=== PATIENT | male | born 1935 | race Caucasian/White ===

== ENCOUNTER 2019-03-15 20:20 | Inpatient (IN) | payer MEDICARE, OTHER, SELFPAY ==
[2019-03-15] VITALS (7 sets, daily range): BP systolic 139–174; BP diastolic 64–89; PULSE 71–87; RESP 18–33; TEMP 36.8–37; O2SAT 79–96; BMI 32.7
--- NOTE | 2019-03-15 20:38 | RAD_ITS ---
STUDY: X-RAY CHEST REASON FOR EXAM: Male, 84 years old. Short of breath. Heart disease and congestive failure. TECHNIQUE: Single AP portable view of the chest. COMPARISON: None. FINDINGS: Normal lung volumes with mild to moderate diffuse bilateral pulmonary density. Findings may represent congestion pulmonary edema, fibrosis, and/or patchy atelectasis/infiltrate infiltrates. There is mild cardiac enlargement. Normal mediastinum and miri. Normal visualized pulmonary arteries. There is atherosclerotic calcification of the aortic arch with tortuosity. There are diffuse degenerative changes of the visualized thoracic spine. Normal visualized ribs, clavicles, and shoulders. There is no demonstrated abnormality of the visualized soft tissue structures of the upper abdomen. RAD/Chest 1 View (Portable) IMPRESSION: Mild to moderate bilateral diffuse pulmonary density, with considerations as above. Electronically Signed: Dm Lopez MD at 21:17 EDT , Service support ,
--- NOTE | 2019-03-15 20:38 | EKG12_ITS ---
Test Reason : SOB Blood Pressure : / mmHG Vent. Rate : 081 BPM Atrial Rate : 088 BPM P-R Int : 000 ms QRS Dur : 132 ms QT Int : 372 ms P-R-T Axes : 000 -36 113 degrees QTc Int : 432 ms Atrial fibrillation Left axis deviation Non-specific intra-ventricular conduction block Cannot rule out Septal infarct , age undetermined T wave abnormality, consider lateral ischemia Abnormal ECG Confirmed by SERENA MALCOLM, CHRIS ([id number]), publications editor JOANNE BADILLO ([id number]) on 03/18/2019 10:21:34 AM Referred By: Zachariah Stanton Confirmed By:CHRIS LYONS MD
[2019-03-15] MEDS: Albuterol 2.5 MG/3 ML VIAL.NEB. INHALATION ×2 (20:40→20:55)
[2019-03-15] MEDS: Ipratropium/Albuterol Sulfate 3 ML AMPUL.NEB INHALATION (20:40)
[2019-03-15] MEDS: MethylPREDNISolone 125 MG/2 ML Vial IV (20:51)
[2019-03-15 20:53] LABS: Absolute Lymphocyte Count 1.28 X10^3/uL (0.83-4.51); Absolute Neutrophil Count 8.6 X10^3/uL (2.0-7.7); Basophil# 0.04 X10^3/uL; Basophil% 0.4 % (0-1); Eosinophil# 0.04 X10^3/uL; Eosinophils% 0.4 % (0-5); Hematocrit 42.9 % (40-54); Hemoglobin 14.1 g/dL (13.0-16.5); Lymphocyte # 1.28 X10^3/ul (4.0); Lymphocyte % 11.5 % (19-41); Mean Corp Hgb Conc 32.9 g/dL (32-36); Mean Corpuscular Hgb 31.1 pg (27.0-32.0); Mean Corpuscular Volume 94.7 fL (80-94); Mean Platelet Vol. 11.5 fl (6.2-12.0); Monocyte# 1.17 X10^3/uL; Monocyte% 10.5 % (0-10); NRBC Flagged by Analyzer 0 % (0-5); Neutrophil % 76.8 % (47-70); Platelet Count 208 K/mm3 (150-450); RBC Distribution Width CV 13.2 % (11.6-14.6); RBC Distribution Width SD 45.8 fl (35.1-43.9); Red Blood Count 4.53 M/mm3 (4.6-6.2); White Blood Count 11.2 K/mm3 (4.4-11.0)
[2019-03-15 21:14] LABS: Anion Gap 6 (5-15); BUN 29 mg/dL (7-18); BUN/Creat Ratio 22.7 RATIO (10-20); Calcium,Total 9.1 mg/dL (8.5-10.1); Chloride 103 mmol/L (98-107); Creatinine, Serum 1.28 mg/dL (0.70-1.30); EST Glomerular Filtration Rate 57 mL/min (>60); Est Glom Filt Rate - Afr Amer 69 mL/min (>60); Glucose 280 mg/dL (74-106); Potassium 4.3 mmol/L (3.5-5.1); Sodium Level 137 mmol/L (136-145)
[2019-03-15 21:22] LABS: BNP,B-Type NATRIURETIC PEPTIDE 837.4 pg/mL (0-100)
[2019-03-15 21:26] LABS: Allen Test POS; Base Excess 1 mmol/L (-2 to +2); Bicarbonate 25.6 mmol/L (22-26); Blood Gas Specimen Type ART; O2 Delivery Device Nasal Can; PO2 68 mmHG (75-100); SITE L Brachial; SO2 93 % (95-99); Time Given 2118; Total Carbon Dioxide 27 mmol/L; pCO2 42.8 mmHg (35-45); pH 7.39 (7.35-7.45)
[2019-03-15 22:43] LABS: International Normalized Ratio 2.7; Prothrombin Time (Protime)PT. 28.8 SECONDS (11.7-14.9)
[2019-03-15] MEDS: Furosemide 40 MG/4 ML Vial IV (23:17)
--- NOTE | 2019-03-15 23:17 | ED.VISSUMM ---
- ER Visit Summary Date of Service: 03/15/19 Chief Complaint: Shortness of breath History of Present Illness: The patient is a 84 M who is visiting from [place]. He is helping clear out his wjxran-vd-hbd's house who last year. He has been very active, working in the house over the last 6 days. He has not been using chemicals. He reports increasing shortness of breath today. His oxygen was 75% for EMS on room air. He denies any history of lung disease. He does not use oxygen at home. He is a non-smoker. He does have a history of A. fib and takes Coumadin. He also has a history of coronary disease with 11 stents. He is denying any chest pain or nausea. Denies any sweats. Denies fever or sputum. Physical Examination: Afebrile. 89% on 6 L. Blood pressure 174/89. Patient is alert and oriented. No acute distress, joking. HEENT exam unremarkable. Heart is irregular. Lungs are diminished and wheezing in all navas. Extremities nontender with no edema. Skin appears normal without diaphoresis or pallor. Test Results: EKG showed atrial fibrillation at a rate of 81. White count 11.2. Glucose 280, BUN 29, INR 2.7. Troponin normal. BNP 837. ABG showed an oxygen of 68. Chest x-ray showed diffuse pulmonary disease concerning for edema versus fibrosis versus infiltrates. Emergency Department Course and Treatment: EKG showed A. fib. Patient was placed on a monitor and oxygen. He was wheezing and treated with nebulizers and Solu-Medrol while awaiting results. On reevaluation, he some improvement in his breathing. His oxygen is in the upper 90s on 6 L. He has no history of COPD. I do not suspect pneumonia. He does not have a high white count, fever, or sputum. PE is less likely based on his INR of 2.7. I am concerned for pulmonary edema. His BNP was 837. Troponin was unremarkable. Patient was treated with Lasix. I spoke with his family at bedside. They are planning to travel back to [place] on Saturday, but are agreeable to admission. I spoke with Dr. Stanton who will admit. Treatment Plan: As above Disposition: Admission Impression: 1. Hypoxia 2. Pulmonary edema This note was generated with [employer] software. It may contain incorrect words, spelling, and punctuation that were not noted in review of the chart prior to signing ED Disposition - Plan for ED Patient: Referrals: Town Doctor,Out of [Primary Care Provider] -
--- NOTE | 2019-03-15 23:27 | PCM.HP.STD ---
Problem List (1) Coronary artery disease Status: Chronic (2) Congestive heart failure Status: Chronic (3) Peripheral arterial disease Status: Chronic (4) Chronic atrial fibrillation Status: Chronic (5) Diabetes mellitus type 2 Status: Chronic (6) Hypertension Status: Chronic (7) Dyslipidemia Status: Chronic (8) Acute hypoxic respiratory failure Status: Acute History of Present Illness Date of Admission: 03/15/19 Chief Complaint: Shortness of breath for last 2 days The patient is a 84 year old M with history of coronary artery disease status post 11 stents, peripheral arterial disease with left femoral stent and renal stent came to ER with shortness of breath for last 2 days. Patient felt mild short of breath yesterday but got very short of breath after he was cleaning his bwjdxo-ff-fyj's house. 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 Patient also has cough for last 5 to 6 months and felt mild chest congestion with mucus. He also felt fever, chills and sweating at home. Patient denies history of COPD but has history of smoking 20 packs, about 2 packs/day for 10 years. He quit in his 20s. In ED, is found to have mild leukocytosis with left shift neutrophils 76%. ABG showed 7.39/PCO2 42.8, PO2 68 on 6 L of oxygen through nasal cannula. Patient felt better after breathing treatment and Lasix and Solu-Medrol given in ED. Chest x-ray shows nonspecific mild to moderate bilateral diffuse pulmonary density. EKG shows atrial fibrillation with LAD, QRS 132 ms, history of nonspecific intraventricular delay. Past Medical History Past Medical History (Chronic Problems): Chronic Problems Coronary artery disease (Chronic) Congestive heart failure (Chronic) Peripheral arterial disease (Chronic) Chronic atrial fibrillation (Chronic) Diabetes mellitus type 2 (Chronic) Hypertension (Chronic) Dyslipidemia (Chronic) Allergies No Known Allergies Allergy (Verified 03/15/19 20:21) Home Medications: Ambulatory Orders Medication Instructions Recorded Clopidogrel Bisulfate [Plavix] 75 mg PO DAILY 03/15/19 Diltiazem CD [Cardizem CD] 240 mg PO DAILY 03/15/19 Duloxetine HCl 30 mg PO DAILY 03/15/19 Gabapentin 800 mg PO 4X/DAY 03/15/19 Glimepiride [Amaryl] 4 mg PO DAILY 03/15/19 Lisinopril/Hydrochlorothiazide 1 ea PO DAILY 03/15/19 [Lisinopril-Hctz 20-25 mg Tab] Lovastatin 20 mg PO DAILY 03/15/19 Metformin HCl 500 mg PO BID 03/15/19 Tamsulosin HCl [Flomax] 0.4 mg PO DAILY 03/15/19 Warfarin Sodium [Jantoven] 5 mg PO MOFR 03/15/19 Warfarin [Coumadin ([facility])] 2.5 mg PO SUTUWETHSA 03/15/19 Smoking Status: Former smoker - *Family History Maternal History Items: Stroke - of a stroke in her 50s Review of Systems Constitutional: Reports: Chills, Fever, Malaise HEENT: Denies: Head Aches, Sinus Congestion, Sinus Drainage Cardiovascular: Reports: Edema. Denies: Chest Pain - Denies chest pain, Palpitations Respiratory: Reports: Cough, Shortness of Breath, Shortness of breath at rest, Shortness of breath upon exertion, Wheezing. Denies: Sputum production Gastrointestinal: Denies: Abdominal Pain, Nausea, Vomiting Genitourinary: Denies: Dysuria, Frequency, Incontinence, Retention Musculoskeletal: Denies: Joint Pain, Joint Tenderness Skin: Denies: Rash, Wounds Neurological: Denies: Focal weakness, Numbness, Tingling Psychiatric: Denies: Anxiety, Depression, Homicidal Ideations, Suicidal Ideations Hematologic/ Lymphatic: Denies: Easy Bruising, Easy Bleeding VTE Information - Inpt Only VTE Present on Admission: No VTE Mechan Device Prophylaxis: None VTE Pharm Prophylaxis ordered?: No Reason prophylaxis not ordered:: Procedure Not Indicated - Patient is on Coumadin. INR therapeutic. Patient Problems: Active and Suspected Problems Acute hypoxic respiratory failure (Acute) - Physical Exam General: Alert, Oriented x3, Cooperative HEENT: Atraumatic, PERRLA, EOMI, Normocephalic Neck: Supple, No JVD, Negative Carotid Bruits Lungs: No rhonchi, No wheeze, No rales, Diminished - Air entry is diminished., Rhonchi - Okay is no rhonchi and wheezing present Cardiovascular: Regular rate, Regular Rhythm, Normal S1, Normal S2, No murmurs Abdomen: Bowel Sounds Present, Soft, Non Tender, Non-Distended Extremities: No edema, Capillary Refill Less than 3 Seconds Skin: No rashes, No breakdown Musculoskeletal: No Tenderness to Palpation of Joints or Extremities, Arthritic Changes Neurological: Cranial nerves II-XII grossly intact Psych/Mental Status: Normal Affect, Appropriate Vital Signs Temp Pulse Resp BP Pulse Ox 98.6 F 79 20 H 149/64 H 96 03/15/19 22:02 03/15/19 22:02 03/15/19 22:02 03/15/19 22:02 03/15/19 22:02 Oxygen Flow Rate (L/min) 6 Oxygen Delivery Method Nasal Cannula Weight: 196 lb 10.437 oz Body Mass Index (BMI) 32.7 Laboratory Tests Past 24 Hrs 03/15/19 03/15/19 03/15/19 20:05 20:25 20:25 WBC 11.2 H RBC 4.53 L Hgb 14.1 Hct 42.9 MCV 94.7 H MCH 31.1 MCHC 32.9 RDW Std Deviation 45.8 H RDW Coeff of Petrona 13.2 Plt Count 208 MPV 11.5 Immature Gran % (Auto) 0.400 Neut % (Auto) 76.8 H Lymph % (Auto) 11.5 L Harney % (Auto) 10.5 H Eos % (Auto) 0.4 Baso % (Auto) 0.4 Absolute Neuts (auto) 8.6 H Absolute Lymphs (auto) 1.28 Nucleated RBC % 0 PT 28.8 H INR 2.7 Specimen Type Sample Site pH Bicarbonate Actual POC Total CO2 Base Excess O2 Saturation ABG pCO2 ABG pO2 Johnnie Test O2 Delivery Device Liter Flow Blood Gas Notified Whom Blood Gas Notified Time Sodium 137 Potassium 4.3 Chloride 103 Carbon Dioxide 28.0 Anion Gap 6 BUN 29 H Creatinine 1.28 Estim Creat Clear Calc 38.70 Est GFR (MDRD) Af Amer 69 Est GFR (MDRD) Non-Af 57 L BUN/Creatinine Ratio 22.7 H Glucose 280 H Calcium 9.1 Troponin I < 0.015 B-Natriuretic Peptide 03/15/19 03/15/19 20:25 21:23 WBC RBC Hgb Hct MCV MCH MCHC RDW Std Deviation RDW Coeff of Petrona Plt Count MPV Immature Gran % (Auto) Neut % (Auto) Lymph % (Auto) Harney % (Auto) Eos % (Auto) Baso % (Auto) Absolute Neuts (auto) Absolute Lymphs (auto) Nucleated RBC % PT INR Specimen Type ART Sample Site L Brachial pH 7.39 Bicarbonate Actual 25.6 POC Total CO2 27 Base Excess 1 O2 Saturation 93 L ABG pCO2 42.8 ABG pO2 68 L Johnnie Test POS O2 Delivery Device Nasal Can Liter Flow 6.0 Blood Gas Notified Whom ED Blood Gas Notified Time 2117 Sodium Potassium Chloride Carbon Dioxide Anion Gap BUN Creatinine Estim Creat Clear Calc Est GFR (MDRD) Af Amer Est GFR (MDRD) Non-Af BUN/Creatinine Ratio Glucose Calcium Troponin I B-Natriuretic Peptide 837.4 H Assessment/Plan All Active Problems Acute hypoxic respiratory failure (Acute) The patient is a 84 year old M with history of coronary artery disease status post 11 stents, peripheral arterial disease with left femoral stent and renal stent came to ER with shortness of breath for last 2 days. Patient felt mild short of breath yesterday but got very short of breath after he was cleaning his xhwnhl-kp-jkb's house. 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 Chest x-ray shows nonspecific mild to moderate bilateral diffuse pulmonary density. EKG shows atrial fibrillation with LAD, QRS 132 ms, history of nonspecific intraventricular delay. 1. Acute hypoxic respiratory failure, possible COPD exacerbation: Patient is being admitted to PCU. Does not have any previous cardiac work-up here. Patient is being admitted to PCU on oxygen support. Will treat underlying disorder. 2. Possible COPD exacerbation with suspicion of pneumonia: Chronic cough, wheezing and mucus raises suspicion of possible undiagnosed COPD. Bronchodilator every 4 hourly, albuterol as needed, IV Solu-Medrol, incentive spirometry and chest physiotherapy. Patient clinically has subjective fever, chills, cough, mild leukocytosis with hypoxia raises suspicion of pneumonia although Chest x-rays finding of bilateral pulmonary hilar density not classical of pneumonia. Pneumonia work-up ordered including urinary antigens, respiratory panel, sputum culture. If patient spikes fever, will need blood cultures x2. No fever or tachycardia noted. Empirically started on IV ceftriaxone and Zithromax and if pneumonia work-up is negative, can discontinued. Repeat chest x-ray PA and lateral tomorrow a.m. 3. CHF, type and etiology unclear: Patient does not have increased leg swelling but BNP is elevated. Clinically does not seem to be in CHF exacerbation. 2D echo ordered for tomorrow a.m. Continue Lasix 40 mg daily. Serial troponin enzymes. Fasting profile and TSH ordered for tomorrow a.m. 5. Coronary artery status post stent, peripheral artery disease, renal artery status post stent and chronic atrial fibrillation and hypertension: Home medications continued. Patient is on lisinopril?HCTZ which is being held as patient is started. Patient not on diuretic at home 6. DVT prophylaxis: Patient is on Coumadin. INR 2.7. Continue Coumadin Advanced directive/MOLST/living will: Patient has living will at home as per his sitting near the bedside. Discussed with the patient and his . It reversible/terminal stage, he does not want to be intubated/CPR. Patient does not want artificial life support including intubation, tube feed, ventilator and/chest compression. Patient is DNR CC Arrest. Total time spent in [id number]-[id number] encounter in discussion of advanced directive 18 minutes. Laboratory Results 03/15/19 20:05: PT 28.8 H, INR 2.7 03/15/19 20:25: WBC 11.2 H, RBC 4.53 L, Hgb 14.1, Hct 42.9, MCV 94.7 H, MCH 31.1, MCHC 32.9, RDW Std Deviation 45.8 H, RDW Coeff of Petrona 13.2, Plt Count 208, MPV 11.5, Immature Gran % (Auto) 0.400, Neut % (Auto) 76.8 H, Lymph % (Auto) 11.5 L, Harney % (Auto) 10.5 H, Eos % (Auto) 0.4, Baso % (Auto) 0.4, Absolute Neuts (auto) 8.6 H, Absolute Lymphs (auto) 1.28, Nucleated RBC % 0 03/15/19 20:25: Sodium 137, Potassium 4.3, Chloride 103, Carbon Dioxide 28.0, Anion Gap 6, BUN 29 H, Creatinine 1.28, Estim Creat Clear Calc 38.70, Est GFR (MDRD) Af Amer 69, Est GFR (MDRD) Non-Af 57 L, BUN/Creatinine Ratio 22.7 H, Glucose 280 H, Calcium 9.1, Troponin I < 0.015 03/15/19 20:25: B-Natriuretic Peptide 837.4 H 03/15/19 21:23: Specimen Type ART, Sample Site L Brachial, pH 7.39, Bicarbonate Actual 25.6, POC Total CO2 27, Base Excess 1, O2 Saturation 93 L, ABG pCO2 42.8, ABG pO2 68 L, Johnnie Test POS, O2 Delivery Device Nasal Can, Liter Flow 6.0, Blood Gas Notified Whom ED MD, Blood Gas Notified Time 2117 Clinical Impression(s) from Imaging Studies Chest X-Ray 03/15/19 20:38 IMPRESSION: Mild to moderate bilateral diffuse pulmonary density, with considerations as above. Code Visit Inpatient E&M: 75238 Init Hosp L3 Procedures: 28886 Advncd Care Plan 30 Min
[2019-03-16] VITALS (11 sets, daily range): BP systolic 142–156; BP diastolic 68–70; PULSE 71–89; RESP 16–20; TEMP 36.4–36.6; O2SAT 92–99; BMI 31.6; BMI 31.7
[2019-03-16] MEDS: Ceftriaxone 1 GM/50 ML BAG IV (03:25)
--- NOTE | 2019-03-16 05:55 | ECHOD_ITS ---
Version 2 Reason For Study: CHF Left Ventricle Moderately dilated left ventricle. The estimated ejection fraction is 30 %. Unable to assess diastolic dysfunction. There is moderate to severe global hypokinesis of the left ventricle. Right Ventricle Mildly dilated right ventricle. Normal systolic function. Atria The left atrium is moderately enlarged. The right atrium is mildly enlarged. Normal atrial septum. Mitral Valve Mild diffuse mitral valve thickening. Trivial mitral valve insufficiency. Tricuspid Valve Normal tricuspid valve. Mild (1+) tricuspid valve insufficiency. Right ventricular systolic pressure estimated to be 59 mmHg. Severe pulmonary hypertension. Aortic Valve Trisinus/trileaflet aortic valve. Mild focal aortic valve thickening. There is no aortic stenosis. Trivial aortic valve insufficiency. Pulmonic Valve Normal pulmonic valve. Great Vessels Normal aortic root. Mild atherosclerosis of the aortic arch. The inferior vena cava is dilated. No collapse of the inferior vena cava. Pericardium/Pleural No pericardial effusion. MMode/2D Measurements & Calculations LVIDd: 5.5 cm IVSd: 1.4 cm LA dimension: 4.6 cm LVIDs: 4.9 cm LVPWd: 1.4 cm FS: 10.9 % LAV(MOD-bp): 69.1 ml LVAd ap4: 35.0 cm2 SV(MOD-sp4): 34.4 ml LAV(MOD-bp) Indexed: 35.7 ml/m2 EDV(MOD-sp4): 120.5 ml LAV(MOD-sp2): 66.1 ml EDV(sp4-el): 130.4 ml LAV(MOD-sp4): 70.0 ml LVAs ap4: 28.2 cm2 ESV(MOD-sp4): 86.0 ml ESV(sp4-el): 88.9 ml EF(MOD-sp4): 28.6 % EF(sp4-el): 31.8 % SV(sp4-el): 41.5 ml LA A4 area: 23.7 cm2 RA A4 area: 20.9 cm2 Time Measurements MV dec time: 0.16 sec Doppler Measurements & Calculations MV E max osman: 110.4 cm/sec MV V2 max: 116.4 cm/sec MV P1/2t max osman: 110.4 cm/sec MV A max osman: 34.7 cm/sec MV max P.4 mmHg MV P1/2t: 76.4 msec MV E/A: 3.2 MV V2 mean: 52.3 cm/sec MV mean P.4 mmHg MV dec slope: 423.1 cm/sec2 MV V2 VTI: 30.0 cm MVA(P1/2t): 2.9 cm2 Ao V2 max: 117.8 cm/sec AI max osman: 338.1 cm/sec LV V1 max: 95.9 cm/sec Ao max P.5 mmHg AI max P.7 mmHg LV V1 max P.7 mmHg Ao V2 mean: 78.9 cm/sec AI dec slope: 256.2 cm/sec2 LV V1 mean P.8 mmHg Ao mean P.9 mmHg AI P1/2t: 386.5 msec LV V1 mean: 63.2 cm/sec Ao V2 VTI: 24.9 cm LV V1 VTI: 21.7 cm MR max osman: 512.5 cm/sec PA V2 max: 67.3 cm/sec TR max osman: 332.8 cm/sec MR max P.1 mmHg TR max P.3 mmHg MR mean osman: 397.6 cm/sec MR mean P.4 mmHg MR VTI: 171.2 cm Interpretation Summary Moderately dilated left ventricle. The estimated ejection fraction is 30 %. Unable to assess diastolic dysfunction. There is moderate to severe global hypokinesis of the left ventricle. Mildly dilated right ventricle. The left atrium is moderately enlarged. The right atrium is mildly enlarged. Trivial mitral valve insufficiency. Mild (1+) tricuspid valve insufficiency. Right ventricular systolic pressure estimated to be 59 mmHg. Severe pulmonary hypertension. Trivial aortic valve insufficiency. No collapse of the inferior vena cava. Pt appears to be in atrial fibrillation. The study was technically difficult. Contrast injection was performed. There is no comparison study available. Ordering Physician: Zachariah Stanton Referring Physician: Zachariah Stanton Performed By: Stepan Laguerre RCS
--- NOTE | 2019-03-16 05:55 | RAD_ITS ---
STUDY: X-RAY CHEST REASON FOR EXAM: Male, 84 years old. Respiratory distress. TECHNIQUE: PA and lateral views of the chest. COMPARISON: Comparison is made with prior study dated March 16, 2019. FINDINGS: EKG electrodes are seen. Vascular congestion. This has improved. Residual blunting of both costophrenic angles more prominent on the right side. There is mild cardiac enlargement. Normal mediastinum and miri. Normal visualized pulmonary arteries. There is atherosclerotic calcification of the aortic arch with tortuosity. There is demineralization of the osseous structures. Normal visualized ribs, clavicles, and shoulders. There is no demonstrated abnormality of the visualized soft tissue structures of the upper abdomen. RAD/Chest PA and Lateral IMPRESSION: Cardiomegaly and a mild degree of vascular congestion with blunting of both costophrenic angles slightly worse on the right side. There has been mild degree of improvement. Electronically Signed: Edgardo Talbert, at 12:35 EDT , Service support ,
[2019-03-16] MEDS: Ipratropium/Albuterol Sulfate 3 ML AMPUL.NEB INHALATION ×2 (06:23→14:21)
[2019-03-16 07:11] LABS: Absolute Lymphocyte Count 0.38 X10^3/uL (0.83-4.51); Absolute Neutrophil Count 5.5 X10^3/uL (2.0-7.7); Basophil# 0.01 X10^3/uL; Basophil% 0.2 % (0-1); Hematocrit 43.3 % (40-54); Hemoglobin 14.2 g/dL (13.0-16.5); Lymphocyte # 0.38 X10^3/ul (4.0); Lymphocyte % 6.3 % (19-41); Mean Corp Hgb Conc 32.8 g/dL (32-36); Mean Corpuscular Hgb 30.9 pg (27.0-32.0); Mean Corpuscular Volume 94.3 fL (80-94); Mean Platelet Vol. 11.7 fl (6.2-12.0); Monocyte# 0.12 X10^3/uL; NRBC Flagged by Analyzer 0 % (0-5); Neutrophil % 91.2 % (47-70); POSITIVE DIFFERENTIAL YES; Platelet Count 165 K/mm3 (150-450); RBC Distribution Width CV 13.1 % (11.6-14.6); RBC Distribution Width SD 45.5 fl (35.1-43.9); Red Blood Count 4.59 M/mm3 (4.6-6.2)
[2019-03-16 07:15] LABS: Differential Indicated SCAN CRITERIA MET
[2019-03-16 07:39] LABS: ALB/GLOB Ratio 0.9 RATIO (0.9-2.4); AST(SGOT) 22 U/L (15-37); Alanine Aminotransfer ALT/SGPT 25 U/L (16-61); Albumin, Serum 3.7 g/dL (3.2-5.0); Alkaline Phosphatase 98 U/L (45-117); Anion Gap 9 (5-15); BUN 32 mg/dL (7-18); BUN/Creat Ratio 22.9 RATIO (10-20); Calcium,Total 8.9 mg/dL (8.5-10.1); Chloride 98 mmol/L (98-107); Cholesterol 137 mg/dL (200); EST Glomerular Filtration Rate 52 mL/min (>60); Est Glom Filt Rate - Afr Amer 62 mL/min (>60); Estimated Creatinine Clearance 35.39 ml/min; Globulin 4.1 g/dL (2.2-4.2); Glucose 457 mg/dL (74-106); High Density Lipoprotein 64 mg/dL; Potassium 4.2 mmol/L (3.5-5.1); Protein, Total 7.8 g/dL (6.4-8.2); Sodium Level 135 mmol/L (136-145); Thyroid Stim Hormone (TSH) 0.54 uIU/mL (0.358-3.74); Triglycerides 62 mg/dL; Very Low Density Lipoprotein 12 mg/dL (5-40)
[2019-03-16 08:11] LABS: Platelet Estimate ADEQUATE (ADEQ); Platelet Morphology LARGE; Red Cell Morphology NORM C+C NORMAL (NORM C&C)
[2019-03-16] MEDS: Insulin Lispro 100 UNIT/ML INSULN.PEN SC ×2 (08:12→11:37)
[2019-03-16] MEDS: Gabapentin 800 MG Tablet PO ×2 (08:14→11:38)
[2019-03-16] MEDS: Glimepiride 4 MG Tablet PO (08:15)
[2019-03-16] MEDS: dilTIAZem CD 240 MG Capsule PO ×2 (09:23→09:24)
[2019-03-16] MEDS: DULoxetine Hcl 30 MG Capsule PO (09:24)
[2019-03-16] MEDS: Famotidine 20 MG Tablet PO (09:24)
[2019-03-16] MEDS: Furosemide 40 MG/4 ML Vial IV (09:24)
[2019-03-16] MEDS: Clopidogrel Bisulfate 75 MG Tablet PO (09:24)
[2019-03-16] MEDS: guaiFENesin 1,200 MG Tablet 1200 MG PO (09:24)
[2019-03-16] MEDS: Polyethylene Glycol 3350 17 GM PACKET PO (09:25)
--- NOTE | 2019-03-16 10:39 | CASEMGMT ---
RN CM Assessment Presentation: COPD Exacerbation, CHF. Hx of 11 stents, L femoral stent and renal stent. Intro role of CM and purpose of RN CM assessment to patient and his in room. Demographics, PCP and Pharmacy verified. Pt and his traveled by car to [place] and plan to return to [place] on discharge. is able to drive, and states they will take time, stay in hotels. PCP: Dr. Lonnie Tavera Preferred Pharmacy: [facility] preferred Insurance: [facility]; [facility] Benefits Prescription Benefit: yes LNOK: Danny Whitt, Living Arrangements: Lives independently with . No care needs identified. Transportation: drives, can drive DME: none. Pt has not used any DME or oxygen. If oxygen would be needed on discharge, recommendation is for [facility]. Pt did not wish to use VA benefits until they returned to [place]. per PT, oxygen on ambulation to 89-90% only. HHC: none Patient DC goals: Home DC PLAN: Home. Clark ESQUIVEL RN ACM
[2019-03-16 11:45] LABS: Bedside Glucose 445 mg/dL (70-110)
--- NOTE | 2019-03-16 14:18 | DCINST_ITS ---
- Discharge Diagnoses Current Active Problems: Current Active and Chronic Problems Coronary artery disease (Chronic) Congestive heart failure (Chronic) Peripheral arterial disease (Chronic) Chronic atrial fibrillation (Chronic) Diabetes mellitus type 2 (Chronic) Hypertension (Chronic) Dyslipidemia (Chronic) Acute hypoxic respiratory failure (Acute) You will use the following diet at home:: Cardiac Discharge Activity: Return to Normal Activity Call your doctor if you observe: Shortness of breath, Dizziness, Fainting spells, Chest pain Additional Instructions: Recommend discussing PFTs (pulmonary function testing) with your PCP when you return home to assess for underlying lung disease. Allergies/Adverse Reactions: Allergies No Known Allergies Allergy (Verified 03/15/19 20:21) Medications to take at Discharge Clopidogrel Bisulfate [Plavix] 75 mg PO DAILY 03/15/19 Diltiazem CD [Cardizem CD] 240 mg PO DAILY 03/15/19 Duloxetine HCl 30 mg PO DAILY 03/15/19 Gabapentin 800 mg PO 4X/DAY 03/15/19 Glimepiride [Amaryl] 4 mg PO DAILY 03/15/19 Lisinopril/Hydrochlorothiazide [Lisinopril-Hctz 20-25 mg Tab] 1 ea PO DAILY 03/15/19 Lovastatin 20 mg PO DAILY 03/15/19 Metformin HCl 500 mg PO BID 03/15/19 Tamsulosin HCl [Flomax] 0.4 mg PO DAILY 03/15/19 Warfarin Sodium [Jantoven] 5 mg PO MOFR 03/15/19 Warfarin [Coumadin] 2.5 mg PO SUTUWETHSA 03/15/19 Albuterol Inhaler [Ventolin Hfa] 1 - 2 puff INHALATION Q4H PRN PRN #1 inhaler 03/16/19 Prednisone See Taper PO DAILY #30 tab 03/16/19 The following prescriptions were given: Prednisone See Taper PO DAILY #30 tab Transmission Status: Pending to [facility] Albuterol Inhaler [Ventolin Hfa] 1 - 2 puff INHALATION Q4H PRN PRN #1 inhaler PRN Reason: Shortness Of Breath Transmission Status: Pending to [facility] Primary Care Physician: Luis Doctor,Out of [NON-STAFF] - Please follow up with your Primary Care Physician in: 1 Week Test Results: Test results from this visit will be discussed in further detail at your follow- up appointment, if applicable. Proposed Discharge Date: 03/16/19
--- NOTE | 2019-03-16 14:23 | DS.PCM_ITS ---
Discharge Date and Diagnosis Date of Admission: 03/15/19 Date of Discharge: 03/16/19 - Primary Discharge Diagnosis Active and Suspected Problems 1. Acute hypoxic respiratory insufficiency secondary to presumed exacerbation of COPD, pneumonia ruled out 2. Chronic systolic CHF 3. CAD with prior history of stents 4. PAD/status post renal artery stent 5. Chronic atrial fibrillation on anticoagulation with Coumadin 6. Hypertension 7. Hyperlipidemia 8. BPH 9. Type 2 diabetes mellitus with peripheral neuropathy - Secondary Discharge Diagnosis Chronic Problems Coronary artery disease (Chronic) Congestive heart failure (Chronic) Peripheral arterial disease (Chronic) Chronic atrial fibrillation (Chronic) Diabetes mellitus type 2 (Chronic) Hypertension (Chronic) Dyslipidemia (Chronic) Hospital Course and Treatment Imaging Results: Diagnostic Data Chest X-Ray 03/16/19 05:55 IMPRESSION: Cardiomegaly and a mild degree of vascular congestion with blunting of both costophrenic angles slightly worse on the right side. There has been mild degree of improvement. Electronically Signed: Edgardo Nitish, at 12:35 EDT , Service support , Operations: None Procedures: 2-D Echocardiogram Summary of Care Provided: The patient is a 84 year old M admitted 03/15/2019 due to shortness of breath. 1. Acute hypoxic respiratory insufficiency secondary to presumed exacerbation of COPD, pneumonia ruled out-wheezing on admission. Chest x-ray without acute process. Afebrile. Mild leukocytosis on admission resolved. Respiratory panel negative. Patient has prior smoking history. Has not had prior testing for COPD. He reports he was exposed to a lot of dust over the past week while cleaning out a house. Denies further wheezing or shortness of breath. Walking pulse ox prior to discharge completed and patient did not require further supplemental oxygen. Discharged on prednisone taper and as needed albuterol aerosol. Recommend pulmonary function testing by primary care provider upon return to [place]. Follow-up with PCP within 1 week. 2. Chronic systolic CHF-BNP on admission 837. No edema, chest x-ray without evidence of CHF. Echocardiogram demonstrated an EF of 30%, moderate to severe global hypokinesis of the left ventricle, mild tricuspid valve insufficiency, RVSP estimated to be 59 mmHg, severe pulmonary hypertension. 3. CAD with prior history of stents-continue home Plavix, statin. Troponin negative. EKG without ST-T changes. 4. PAD/status post renal artery stent-continue statin, Plavix. 5. Chronic atrial fibrillation on anticoagulation with Coumadin-rate controlled. INR therapeutic. Continue Cardizem, Coumadin regimen. 6. Hypertension-stable, continue home lisinopril, HCTZ regimen. 7. Hyperlipidemia-continue statin. 8. BPH-continue Flomax regimen. 9. Type 2 diabetes mellitus with peripheral neuropathy-blood glucose elevated admission due to IV steroids. Continue home metformin regimen. Patient seen and examined prior to discharge. Physical assessment as noted below. Patient is stable for discharge with follow up recommendations as noted above. This patient was seen by ALFREDITO Nolan under the supervision of Dr. Thurman. - Physical Exam Vital Signs Temp Pulse Resp BP Pulse Ox 97.6 F L 71 18 156/68 H 98 03/16/19 10:05 03/16/19 11:22 03/16/19 10:05 03/16/19 10:05 03/16/19 13:41 Oxygen Flow Rate (L/min) 97 Oxygen Delivery Method Nasal Cannula Weight: 190 lb 0.615 oz Body Mass Index (BMI) 31.6 Intake and Output for Last 24 Hours 03/14/19 03/15/19 03/16/19 23:59 23:59 23:59 Intake Total 1792 / 1792 Output Total 350 / 350 Balance 1442 / 1442 Microbiology Past 72 Hours 03/16/19 06:10 Respiratory Panel (PCR) - Final Mucosa - Nose 03/16/19 03:00 Streptococcus pneumoniae Antigen (M - Final Urine, Clean Catch 03/16/19 03:00 Legionella Antigen - Final Urine, Clean Catch Laboratory Tests Past 24 Hrs 03/15/19 03/15/19 03/15/19 20:05 20:25 20:25 WBC 11.2 H RBC 4.53 L Hgb 14.1 Hct 42.9 MCV 94.7 H MCH 31.1 MCHC 32.9 RDW Std Deviation 45.8 H RDW Coeff of [place] 13.2 Plt Count 208 MPV 11.5 Immature Gran % (Auto) 0.400 Neut % (Auto) 76.8 H Lymph % (Auto) 11.5 L [place] % (Auto) 10.5 H Eos % (Auto) 0.4 Baso % (Auto) 0.4 Absolute Neuts (auto) 8.6 H Absolute Lymphs (auto) 1.28 Nucleated RBC % 0 Platelet Estimate Plt Morphology Comment RBC Morphology PT 28.8 H INR 2.7 Specimen Type Sample Site pH Bicarbonate Actual POC Total CO2 Base Excess O2 Saturation ABG pCO2 ABG pO2 Johnnie Test O2 Delivery Device Liter Flow Blood Gas Notified Whom Blood Gas Notified Time Sodium 137 Potassium 4.3 Chloride 103 Carbon Dioxide 28.0 Anion Gap 6 BUN 29 H Creatinine 1.28 Estim Creat Clear Calc 38.70 Est GFR (MDRD) Af Amer 69 Est GFR (MDRD) Non-Af 57 L BUN/Creatinine Ratio 22.7 H Glucose 280 H Calcium 9.1 Total Bilirubin AST ALT Alkaline Phosphatase Troponin I < 0.015 B-Natriuretic Peptide Total Protein Albumin Globulin Albumin/Globulin Ratio Triglycerides Cholesterol LDL Cholesterol VLDL Cholesterol HDL Cholesterol TSH 03/15/19 03/15/19 03/16/19 20:25 21:23 00:55 WBC RBC Hgb Hct MCV MCH MCHC RDW Std Deviation RDW Coeff of [place] Plt Count MPV Immature Gran % (Auto) Neut % (Auto) Lymph % (Auto) [place] % (Auto) Eos % (Auto) Baso % (Auto) Absolute Neuts (auto) Absolute Lymphs (auto) Nucleated RBC % Platelet Estimate Plt Morphology Comment RBC Morphology PT INR Specimen Type ART Sample Site L Brachial pH 7.39 Bicarbonate Actual 25.6 POC Total CO2 27 Base Excess 1 O2 Saturation 93 L ABG pCO2 42.8 ABG pO2 68 L Johnnie Test POS O2 Delivery Device Nasal Can Liter Flow 6.0 Blood Gas Notified Whom ED MD Blood Gas Notified Time 2117 Sodium Potassium Chloride Carbon Dioxide Anion Gap BUN Creatinine Estim Creat Clear Calc Est GFR (MDRD) Af Amer Est GFR (MDRD) Non-Af BUN/Creatinine Ratio Glucose Calcium Total Bilirubin AST ALT Alkaline Phosphatase Troponin I < 0.015 B-Natriuretic Peptide 837.4 H Total Protein Albumin Globulin Albumin/Globulin Ratio Triglycerides Cholesterol LDL Cholesterol VLDL Cholesterol HDL Cholesterol TSH 03/16/19 03/16/19 03/16/19 03:34 06:45 06:45 WBC 6.0 RBC 4.59 L Hgb 14.2 Hct 43.3 MCV 94.3 H MCH 30.9 MCHC 32.8 RDW Std Deviation 45.5 H RDW Coeff of [place] 13.1 Plt Count 165 MPV 11.7 Immature Gran % (Auto) 0.300 Neut % (Auto) 91.2 H Lymph % (Auto) 6.3 L [place] % (Auto) 2.0 Eos % (Auto) 0.0 Baso % (Auto) 0.2 Absolute Neuts (auto) 5.5 Absolute Lymphs (auto) 0.38 L Nucleated RBC % 0 Platelet Estimate ADEQUATE Plt Morphology Comment LARGE RBC Morphology NORM C+C PT INR Specimen Type Sample Site pH Bicarbonate Actual POC Total CO2 Base Excess O2 Saturation ABG pCO2 ABG pO2 Johnnie Test O2 Delivery Device Liter Flow Blood Gas Notified Whom Blood Gas Notified Time Sodium 135 L Potassium 4.2 Chloride 98 Carbon Dioxide 28.0 Anion Gap 9 BUN 32 H Creatinine 1.40 H Estim Creat Clear Calc 35.39 Est GFR (MDRD) Af Amer 62 Est GFR (MDRD) Non-Af 52 L BUN/Creatinine Ratio 22.9 H Glucose 457 H* Calcium 8.9 Total Bilirubin 0.70 AST 22 ALT 25 Alkaline Phosphatase 98 Troponin I < 0.015 < 0.015 B-Natriuretic Peptide Total Protein 7.8 Albumin 3.7 Globulin 4.1 Albumin/Globulin Ratio 0.9 Triglycerides 62 Cholesterol 137 LDL Cholesterol 61 VLDL Cholesterol 12 HDL Cholesterol 64 TSH 0.54 POC Glucose 03/16/19 11:35 POC Glucose 445 H Discharge Diet: Low fat/ Low Cholesterol Discharge Activity: Return to Normal Activity Call your doctor if you observe: Shortness of breath, Dizziness, Fainting spells, Chest pain Home Medications: Medications to take at Discharge Clopidogrel Bisulfate [Plavix] 75 mg PO DAILY 03/15/19 Diltiazem CD [Cardizem CD] 240 mg PO DAILY 03/15/19 Duloxetine HCl 30 mg PO DAILY 03/15/19 Gabapentin 800 mg PO 4X/DAY 03/15/19 Glimepiride [Amaryl] 4 mg PO DAILY 03/15/19 Lisinopril/Hydrochlorothiazide [Lisinopril-Hctz 20-25 mg Tab] 1 ea PO DAILY 03/15/19 Lovastatin 20 mg PO DAILY 03/15/19 Metformin HCl 500 mg PO BID 03/15/19 Tamsulosin HCl [Flomax] 0.4 mg PO DAILY 03/15/19 Warfarin Sodium [Jantoven] 5 mg PO MOFR 03/15/19 Warfarin [Coumadin] 2.5 mg PO SUTUWETHSA 03/15/19 Albuterol Inhaler [Ventolin Hfa] 1 - 2 puff INHALATION Q4H PRN PRN #1 inhaler 03/16/19 Prednisone See Taper PO DAILY #30 tab 03/16/19 Following Prescrptions Were Given to Patient: Prednisone See Taper PO DAILY #30 tab Transmission Status: Pending to [facility] Albuterol Inhaler [Ventolin Hfa] 1 - 2 puff INHALATION Q4H PRN PRN #1 inhaler PRN Reason: Shortness Of Breath Transmission Status: Pending to [facility] Primary Care Physician: [facility] Doctor,Out of [NON-STAFF] - Please follow up with your Primary Care Physician in: 1 Week Disposition: Home Minutes spent on discharge:: 35 Patient Condition:: Stable Medical Necessity - Tobacco Use Smoking Status: Former smoker Meaningful Use Info Meaningful Use Diagnoses (Choose all that apply): None applicable
[2019-03-16 14:35] LABS: Bedside Glucose 380 mg/dL (70-110)
== END 2019-03-16 15:56 | disposition home or self-care (01) | DRG 292 ==
LOC: ED 23:20 → PCU 03-16
PROVIDERS: Admitting Provider Internal Medicine; Emergency Provider Emergency Medicine; Referring Provider Internal Medicine; Visit Provider Internal Medicine
DX: I11.0 Hypertensive heart disease with heart failure (principal); J44.1 Chronic obstructive pulmonary disease with (acute) exacerbation; I25.10 Atherosclerotic heart disease of native coronary artery without angina pectoris; I50.22 Chronic systolic (congestive) heart failure; I25.5 Ischemic cardiomyopathy; E78.5 Hyperlipidemia, unspecified; I27.20 Pulmonary hypertension, unspecified; I48.2 Chronic atrial fibrillation; E11.51 Type 2 diabetes mellitus with diabetic peripheral angiopathy without gangrene; E11.42 Type 2 diabetes mellitus with diabetic polyneuropathy; N40.0 Benign prostatic hyperplasia without lower urinary tract symptoms; E11.65 Type 2 diabetes mellitus with hyperglycemia; Z79.4 Long term (current) use of insulin; Z79.02 Long term (current) use of antithrombotics/antiplatelets; Z87.891 Personal history of nicotine dependence; Z79.01 Long term (current) use of anticoagulants; R06.89 Other abnormalities of breathing; Z66 Do not resuscitate; T38.0X5A Adverse effect of glucocorticoids and synthetic analogues, initial encounter; Z79.84 Long term (current) use of oral hypoglycemic drugs; Z82.3 Family history of stroke; Z95.5 Presence of coronary angioplasty implant and graft
CPT/HCPCS: 36415; 36600; 71045; 71046; 80048; 80053; 80061; 82803; 82962; 83880; 84443; 84484; 85025; 85610; 87449; 87633; 93005; 93306; 94640; 97162; 97166; 99285; Q9957; A4216; J1940